=== PATIENT | female | born 1965 | race Caucasian/White ===

== ENCOUNTER 2020-03-11 12:53 | Emergency (ER) | payer OTHER ==
[~2020-03-11] VITALS: Ht 157.5 cm; Wt 90.7 kg
[~2020-03-11 12:53] MED LIST: BP MED PO; CALCIUM 500 +1 EAC5 PO; MULTIVITAMINS1 EAC7 PO
[2020-03-11] MEDS ORDERED: NORCO 5-325 TA1 EAC2 PO (14:45)
[2020-03-11] MEDS ORDERED: IBUPROFEN 600600 M1 PO (14:45)
[2020-03-11] MEDS ORDERED: IBUPROFEN 800800 M1 PO (14:48)
[2020-03-11 15:13] VITALS: BP 187/77
== END 2020-03-11 15:12 | disposition home or self-care (01) ==
LOC: M.ERS 12:53
DX: S82.62XA Displaced fracture of lateral malleolus of left fibula, initial encounter for closed fracture (principal); I10 Essential (primary) hypertension; M19.90 Unspecified osteoarthritis, unspecified site; F17.210 Nicotine dependence, cigarettes, uncomplicated; W18.39XA Other fall on same level, initial encounter; Y93.89 Activity, other specified; Y92.89 Other specified places as the place of occurrence of the external cause; Y99.8 Other external cause status